=== PATIENT | male | born 2000 | race Caucasian/White ===

== ENCOUNTER 2019-06-06 20:17 | Emergency (ER) | payer OTHER ==
[~2019-06-06] VITALS: Ht 182.9 cm; Wt 70.3 kg
[2019-06-06 20:25] VITALS: BP 155/65
[2019-06-06] MEDS ORDERED: LIDOCAINE PO (20:55)
[2019-06-08 18:06] LABS: HSV 2 IgG <0.91 index (0.00-0.90)
== END 2019-06-06 21:23 | disposition home or self-care (01) ==
LOC: ER 20:17
PROVIDERS: Emergency Medicine
DX: K12.1 Other forms of stomatitis (principal)